=== PATIENT | male | born 1990 | race African-American/Black ===

== ENCOUNTER 2021-05-13 11:28 | Emergency (ER) | payer OTHER ==
[~2021-05-13] VITALS: Wt 95.3 kg
== END 2021-05-13 12:29 | disposition left against medical advice (07) ==
LOC: ED 11:28
DX: R06.89 Other abnormalities of breathing (principal); R07.0 Pain in throat; Z53.21 Procedure and treatment not carried out due to patient leaving prior to being seen by health care provider